=== PATIENT | female | born 1980 | race Caucasian/White ===

== ENCOUNTER 2017-01-20 08:31 | Emergency (ER) | payer BC ==
[2017-01-20 08:54] VITALS: BP 140/87
--- NOTE | 2017-01-20 09:40 | UC ---
Complaint Female HPI - HPI Summary HPI Summary: Patient has had dull back ache for the past few days. last night was woken up with sharp pains, urinated lots of blood, the dull ache is still present, pain has decreased. - History Of Current Complaint Chief Complaint: [facility] Stated Complaint: LEFT SIDE PAIN,URINARY COMPLAINT Time Seen by Provider: 01/20/17 08:47 Hx Obtained From: Patient Hx Last Menstrual Period: 2 weeks ?: No Onset/Duration: Sudden Onset, Lasting Days Timing: Intermittent, Lasting Hours Severity Initially: Severe Severity Currently: Mild Pain Intensity: 2 Pain Scale Used: 0-10 Numeric Character: Sharp, Dull, Cramping Aggravating Factor(s): Urination Alleviating Factor(s): Nothing Associated Signs And Symptoms: Positive: Back Pain - Risk Factors Ectopic Risk Factor: Negative Ovarian Torsion Risk Factor: Negative - Allergies/Home Medications Allergies/Adverse Reactions: Allergies Allergy/AdvReac Type Severity Reaction Status Date / Time Sulfa Antibiotics Allergy Rash Verified 01/20/17 08:55 environmental Allergy Eyes Uncoded 01/20/17 08:55 Itchy/Swollen/Red/Watery Home Medications: Home Medications Budesonide/Formote 80/4.5(NF) [Symbicort 80/4.5 (NF)] 1 puff INH BID 01/20/17 [ History Confirmed 01/20/17] Cetirizine* [ZyrTEC*] 10 mg PO DAILY 01/20/17 [History Confirmed 01/20/17] Citalopram TAB* [CeleXA TAB*] 20 mg PO DAILY 01/20/17 [History Confirmed ] Cyclobenzaprine TAB* [Flexeril TAB*] 10 mg PO BEDTIME 01/20/17 [History Confirmed 01/20/17] Hydroxychloroquine TAB* [Plaquenil TAB*] 200 mg PO BID 01/20/17 [History Confirmed 01/20/17] Levothyroxine TAB* [Synthroid TAB*] 200 mcg PO DAILY 01/20/17 [History Confirmed 01/20/17] Montelukast Sodium TAB* [Singulair TAB*] 10 mg PO DAILY 01/20/17 [History Confirmed 01/20/17] Nuvaring 1 dose VAGINAL SEE INSTRUCTIONS 01/20/17 [History Confirmed 01/20/17] Pro Air Inhaler 2 puff INH Q8HR PRN 01/20/17 [History Confirmed 01/20/17] traZODone TAB* [Desyrel TAB*] 50 mg PO BEDTIME 01/20/17 [History Confirmed 01/20] PMH/Surg Hx/FS Hx/Imm Hx Previously Healthy: Yes Endocrine History Of: Reports: Thyroid Disease Respiratory History Of: Reports: Asthma - Surgical History Surgical History: Yes Surgery Procedure, Year, and Place: enlarged thyroid with nodules, Bx indeterminate - Family History Known Family History: Positive: Hypertension - Social History Alcohol Use: Rare Substance Use Type: None Smoking Status (MU): Never Smoked Tobacco Review of Systems Constitutional: Negative Skin: Negative Eyes: Negative ENT: Negative Respiratory: Negative Cardiovascular: Negative Gastrointestinal: Abdominal Pain Genitourinary: Dysuria, Hematuria Motor: Negative Neurovascular: Negative Musculoskeletal: Myalgia Neurological: Negative Psychological: Negative All Other Systems Reviewed And Are Negative: Yes Physical Exam Triage Information Reviewed: Yes Appearance: Well-Appearing, Well-Nourished, Pain Distress Vital Signs: Initial Vital Signs Temp 98.5 F 01/20/17 08:42 Pulse 88 01/20/17 08:42 Resp 18 01/20/17 08:42 BP 140/87 01/20/17 08:42 Vital Signs Reviewed: Yes Eye Exam: Normal Eyes: Positive: Conjunctiva Clear ENT Exam: Normal ENT: Positive: Normal ENT inspection, Hearing grossly normal, Pharynx normal, TMs normal Dental Exam: Normal Neck exam: Normal Neck: Positive: Supple, Nontender, No Lymphadenopathy Respiratory Exam: Normal Respiratory: Positive: Chest non-tender, Lungs clear, Normal breath sounds Cardiovascular Exam: Normal Cardiovascular: Positive: RRR, No Murmur, Pulses Normal Abdominal Exam: Other - tender in right upper and lower quad on palpation Abdomen Description: Positive: No Organomegaly, Soft, CVA Tenderness (L) Bowel Sounds: Positive: Present Musculoskeletal Exam: Normal Musculoskeletal: Positive: Strength Intact, ROM Intact, No Edema Neurological Exam: Normal Neurological: Positive: Alert, Muscle Tone Normal Psychological Exam: Normal Skin Exam: Normal Complaint Female Dx - Course Course Of Treatment: hx obtained, exam performed, CT to r/o stones, positive for hydronephrosis and 4 mm renal stone - Differential Dx/Diagnosis Differential Diagnosis/HQI/PQRI: Pelvic Inflammatory Disease, Renal Colic, Ureteral Stone, Urinary Tract Infection Provider Diagnoses: renal calculi in left kidney. left hydronephrosis Discharge - Discharge Plan Condition: Stable Disposition: HOME Patient Education Materials: Kidney Stones (ED) Referrals: Tripp Farooq DO [Primary Care Provider] - Jayant Lopez MD,Elliot Raymond [Medical Doctor] - Additional Instructions: Increase your fluid intake and take the medications as prescribed. If you do not pass the stone and pain continue for more than a week, you develope a fever or uncontrolled pain follow up.
--- NOTE | 2017-01-20 10:12 | RAD ---
Indication: Left flank pain. Gross hematuria. CT of the abdomen and pelvis was performed without oral or IV contrast administration. Coronal and sagittal reconstructed images were obtained. There is enlargement of the left kidney with mild left hydroureter. There is a calculi in the left distal ureter just above the ureterovesicular junction measuring up to 4 mm. Perinephric infiltration of fat was present. The right kidney shows no hydronephrosis. The lung bases demonstrate no pleural fluid, nodules or masses. Heart is of normal size without evidence of pericardial effusion. Liver is normal in size. No focal lesions or intrahepatic ductal dilatation is noted. The gallbladder demonstrates no calcific gallstones. No pericholecystic fluid or wall thickening is noted. Pancreas demonstrates no mass or pancreatic ductal dilatation. The spleen is normal in size. No adrenal lesions are noted. Aorta and inferior vena cava are unremarkable. No dilated loops of bowel are noted. The appendix is visualized and is normal. Uterus and ovaries are unremarkable. Urinary bladder. No hernias are identified. IMPRESSION: MILD LEFT HYDRONEPHROSIS AND HYDROURETER WITH A 4 MM CALCULI IN THE LEFT DISTAL URETER JUST ABOVE THE LEFT URETEROVESICULAR JUNCTION. PERINEPHRIC INFILTRATION OF FAT IS NOTED. THE RIGHT KIDNEY IS UNREMARKABLE.
== END 2017-01-20 10:35 | disposition home or self-care (01) ==
LOC: UCCORT 08:31
DX: N13.2 Hydronephrosis with renal and ureteral calculous obstruction (principal); E07.9 Disorder of thyroid, unspecified; J45.909 Unspecified asthma, uncomplicated; Z88.2 Allergy status to sulfonamides
CPT/HCPCS: 74176; 87086; 99202; G0463